=== PATIENT | female | born 1995 | race African-American/Black ===

== ENCOUNTER 2024-03-03 11:59 | Emergency (ER) | payer SELFPAY ==
[2024-03-04 14:32] LABS: Chlam.trachomatis by PCR,Urine Not Detected (NotDetected); GC N.gonorrhoeae PCR,UrineVOID Not Detected (NotDetected)
== END 2024-03-03 12:28 | disposition home or self-care (01) ==
LOC: BURERS 11:59
DX: N93.9 Abnormal uterine and vaginal bleeding, unspecified (principal)
CPT/HCPCS: 87491; 87591